=== PATIENT | male | born 1965 | race Caucasian/White ===

== ENCOUNTER 2020-03-31 08:53 | Day surgery (SDC) | payer OTHER ==
[2020-03-27 11:18] VITALS: BMI 20.3
[2020-03-31 09:15] VITALS: RESP 16; TEMP 97.8
[2020-03-31] MEDS ORDERED: LIDOCAINE 1% (10MG/ML) FOR IV START INTRADERMA ONE (09:17)
[2020-03-31] MEDS ORDERED: LACTATED RINGERS 1,000 ML IV ONE (09:17)
[2020-03-31] MEDS ORDERED: PROPOFOL 10 MG/ML 20 ML VIAL IV ONE (09:43)
--- NOTE | 2020-03-31 10:10 | P.PCN ---
Date of Procedure: 03/31/20 Description of Procedure: BRIEF HISTORY: Patient is a 54-year-old female presenting for outpatient colonoscopy for screening for malignant neoplasm of the colon. Patient does report constipation with intermittent bright red blood per rectum. No prior colonoscopies. No family history of colon cancer. PROCEDURE PERFORMED: Colonoscopy. PREOPERATIVE DIAGNOSIS: Screening for neoplasm of the colon, no prior colonoscopies. ESTIMATED BLOOD LOSS: Minimal. IV sedation per Anesthesia. PROCEDURE: After informed consent was obtained, the patient, was brought into the endoscopy unit. IV sedation was administered by Anesthesia under continuous monitoring. Digital rectal examination was normal. Initially the Olympus CF-190 flexible video colonoscope was then inserted in the rectum, gradually advanced into the cecum without any difficulty. Careful examination was performed as the scope was gradually being withdrawn. Ileocecal valve and the appendiceal orifice were visualized and appeared normal. Prep was excellent. Mucosa of the cecum, ascending colon, transverse colon, descending colon, sigmoid colon, and rectum appeared normal, low-grade internal hemorrhoids seen. Retroflexion was performed in the rectum and no lesions were seen. The patient tolerated the procedure well. IMPRESSION: Normal-appearing colon from rectum to cecum. Low-grade internal hemorrhoids. RECOMMENDATIONS: Findings of this examination were discussed with the patient and his . Okay to resume diet. Okay to resume medications. Would recommend a bowel regimen with stool softener or gentle laxative such as MiraLAX. Repeat colonoscopy in 10 years for screening or sooner if signs or symptoms would warrant further evaluation developed.
[2020-03-31 10:11] VITALS: BP 111/73; PULSE 68
== END 2020-03-31 10:42 | disposition home or self-care (01) ==
LOC: ORWHC2ENDO 08:53
PROVIDERS: ATTEND Internal Medicine
DX: K64.8 Other hemorrhoids (principal); K59.00 Constipation, unspecified; I10 Essential (primary) hypertension; Z79.899 Other long term (current) drug therapy
CPT/HCPCS: 45378; J2704

== ENCOUNTER → 2022-09-13 | Outpatient (CLI) | payer OTHER ==
--- NOTE | 2022-09-14 06:30 | MR ---
EXAMINATION TYPE: MR shoulder RT wo con DATE OF EXAM: 09/13/2022 COMPARISON: None. HISTORY: RT SHOULDER PAIN X4 MONTHS with difficulty raising arm overhead, INJURED APR 2022 TECHNIQUE: Multiplanar, multisequence imaging of the right shoulder is performed without contrast. FINDINGS: Rotator Cuff: Full thickness retracted tear of the infraspinatus tendon with some retraction to level of the acromioclavicular joint. There is only partial tearing involving posterior one quarter fibers of the supraspinatus tendon. There is increased signal in the supraspinatus tendon. Subscapularis te ndon is intact with wavy contour and surrounding fluid. Rotator cuff muscle bulk shows mild atrophy o f the spinatus and infraspinatus tendons. Acromioclavicular Joint: Moderate narrowing and capsular hypertrophy. Loss of underlying fat plane co lola image 15 and sagittal image 17 noted. Glenohumeral Joint: High riding humeral heads suggests underlying instability. Moderate to large size joint effusion. Significant narrowing superior glenohumeral joint. No significant spurring. Labrum: The labrum appears grossly intact given limitation of non-arthrogram study. Biceps Tendon: The long head of biceps is in normal location within bicipital groove. Bone marrow signal: No focal abnormal marrow signal is appreciated. Other: No additional significant abnormality is appreciated. IMPRESSION: 1. Full-thickness retracted tear of the infraspinatus tendon. Tendinosis and partial tearing of the s upraspinatus tendon. High riding humeral head suggesting underlying instability. 2. 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 Moderate to large sized glenohumer al joint effusion. Significant narrowing superior aspect glenohumeral joint.
== END | disposition home or self-care (01) ==
LOC: RADMRIMAIN 18:57
PROVIDERS: ATTEND Student in an Organized Health Care Education/Training Program
DX: M75.111 Incomplete rotator cuff tear or rupture of right shoulder, not specified as traumatic (principal); M67.813 Other specified disorders of tendon, right shoulder; M19.011 Primary osteoarthritis, right shoulder; M25.411 Effusion, right shoulder